=== PATIENT | male | born 1975 | race Caucasian/White ===

== ENCOUNTER 2016-07-19 09:00 | Outpatient (RCR) | payer BC ==
[~2016-07-19 09:00] MED LIST: ATOR10TA56; CHOL200018; ESCI20TA39 PO; GLIM2TAB PO; LSNP10T PO; METF500T4 PO; MOME13HF; MTP50T; RANI300T4; SAXA1TBM3 PO; SERT100T PO; TEST75GE3 TD; VIT1TABL90 PO; [UNRECOGNIZED DRUG - CODE] TP
[2016-08-19] MEDS ORDERED: TRUJEO SQ (16:44)
== END 2016-08-08 | disposition home or self-care (01) ==
LOC: DT 09:00
PROVIDERS: ATTEND Family Medicine
DX: E11.9 Type 2 diabetes mellitus without complications (principal); E66.01 Morbid (severe) obesity due to excess calories; Z68.44 Body mass index [BMI] 60.0-69.9, adult
CPT/HCPCS: 97802; 97803

== ENCOUNTER → 2016-08-09 | Outpatient (CLI) | payer BC ==
[~2016-08-09] MED LIST changes: +TRUJEO SQ
[2016-08-09 09:53] LABS: BILIRUBIN,URINE Negative (Negative); CLARITY,URINE Clear; COLOR,URINE Yellow; GLUCOSE, URINE (UA) Negative (Negative); LEUKOCYTE ESTERASE ,URINE Negative (Negative); PH,URINE 5.5 (5.0 - 8.0); UROBILINOGEN,URINE 0.2 mg/dL (0.2-1.0)
[2016-08-09 09:54] LABS: BASOPHILS % (AUTO) 0 % (0-2); EOSINOPHILS # (AUTO) 0.2 10^3uL; EOSINOPHILS % (AUTO) 1 % (0-4); LYMPHOCYTES # (AUTO) 1.7 X10^3; MEAN CORPUSCULAR HEMOGLOBIN 28.4 PG (26.0-34.0); MEAN CORPUSCULAR VOLUME 81 FL (80-100); MEAN PLATELET VOLUME 11.3 FL (6.0-9.5); MONOCYTES # (AUTO) 0.8 X10^3; MONOCYTES % (AUTO) 5 % (3-11); NEUTROPHILS # (AUTO) 12.5 X10^3; NEUTROPHILS % (AUTO) 80 % (51-67); PLATELET COUNT 314 10^3uL (150-450); WHITE BLOOD COUNT 15.58 10^3uL (4.0-11.0)
[2016-08-09 09:59] LABS: URINE CENTRIFUGED VOLUME 12 mL
[2016-08-09 10:00] LABS: RBC,URINE None Seen /HPF
[2016-08-09 10:05] LABS: ALBUMIN 4.9 g/dL (3.4-5.0); ANION GAP 22.1 MEQ/L (3-15); CALCULATED IONIZED CALCIUM 3.8 mg/dL (3.8-4.6); TOTAL PROTEIN 8.7 g/dL (6.4-8.5)
== END ==
LOC: LAB 09:36
PROVIDERS: ATTEND Family Medicine
DX: E11.9 Type 2 diabetes mellitus without complications (principal)
CPT/HCPCS: 36415; 80053; 81003; 81015; 83036; 85025

== ENCOUNTER 2016-08-19 16:24 | Emergency (ER) | payer BC ==
[~2016-08-19] VITALS: Ht 182.9 cm; Wt 221.0 kg
[2016-08-19 16:36] VITALS: BP 184/91
== END 2016-08-19 18:00 | disposition home or self-care (01) ==
LOC: EDUNIT# 16:24 → ED 16:25
DX: E11.65 Type 2 diabetes mellitus with hyperglycemia (principal); Z79.84 Long term (current) use of oral hypoglycemic drugs; Z79.4 Long term (current) use of insulin
CPT/HCPCS: 99281; 99283

== ENCOUNTER 2016-10-10 09:00 | Outpatient (RCR) | payer BC | END 2016-11-07 | disposition home or self-care (01) | LOC: DT 09:00 | PROVIDERS: ATTEND Family Medicine | DX: E11.9 Type 2 diabetes mellitus without complications (principal); E66.01 Morbid (severe) obesity due to excess calories; Z68.44 Body mass index [BMI] 60.0-69.9, adult | CPT/HCPCS: 97803 ==

== ENCOUNTER 2016-12-20 09:00 | Outpatient (RCR) | payer BC | END 2016-12-25 17:12 | disposition home or self-care (01) | LOC: DT 09:00 | PROVIDERS: ATTEND Family Medicine | DX: E11.9 Type 2 diabetes mellitus without complications (principal); E66.01 Morbid (severe) obesity due to excess calories; Z68.44 Body mass index [BMI] 60.0-69.9, adult | CPT/HCPCS: 97803 ==

== ENCOUNTER → 2016-12-20 | Outpatient (CLI) | payer BC ==
[2016-12-20 09:23] LABS: ALBUMIN 4.3 g/dL (3.4-5.0); ALKALINE PHOSPHATASE 135 U/L (38-126); BUN/CREATININE RATIO 21 (10-20); TOTAL PROTEIN 7.7 g/dL (6.4-8.5)
== END ==
LOC: LAB 08:30
PROVIDERS: ATTEND Family Medicine
DX: E10.9 Type 1 diabetes mellitus without complications (principal)
CPT/HCPCS: 36415; 80053; 80061; 82043; 83036